=== PATIENT | male | born 1940 | race Caucasian/White ===

== ENCOUNTER 2018-02-14 12:03 | Emergency (ER) | payer MEDICARE, BC ==
[~2018-02-14 12:03] MED LIST: Sodium Chloride 0.9% 1,000 ML BAG ONE; Sodium Chloride 0.9% 100 ML BAG ONE
[2018-02-14 13:14] LABS: Band 29 % (5-11); Hemoglobin 14.2 g/dL (14.0-18.0); Lymphocytes 8 % (21-51); MDiff Complete? YES; Mean Corpuscular Volume 89.8 fl (80.0-94.0); Mean Platelet Volume 9.7 fL (7.4-10.4); Monocytes 2 % (0-10); Neutrophil 61 % (42-75); Platelet Count 211 thou/uL (130-400); RBC Distribution Width 14.1 % (11.5-14.5); Red Blood Cell (RBC) Count 5.28 mill/uL (4.70-6.10); Vacuoles SLIGHT; White Blood Cell (WBC) Count 14.4 thou/uL (4.8-10.8)
[2018-02-14 13:16] LABS: INR-International Normal Ratio 1.3; PTT 28.6 SEC (22.9-36.1); Prothrombin Time 16.8 SEC (12.0-14.7)
--- NOTE | 2018-02-14 13:17 | CT ---
HEAD CT WITHOUT CONTRAST: Date: 02-14-18 Comparison: 01-03-16 History: Fall over the past two days, inability to communicate, altered mental status. Technique: Serial axial CT imaging is obtained at 5 mm intervals from vertex through the skull base w ithout contrast. Coronal and sagittal reformatted imaging obtained. FINDINGS: Incompletely imaged ventriculoperitoneal shunt tubing is seen inserted via a right parietal approach, distal tip of catheter tubing abutting the septum pellucidum, stable. Imaged paranasal sinuses and mastoid air cells are grossly unremarkable. There is no displaced calvarial fracture. No intracranial hemorrhage, midline shift, or mass effect n oted. There is moderate diffuse cerebral volume loss with associated prominence of the CSF containing space s. There is extensive periventricular deep and subcortical white matter hypodensity, evidence of prom inent stable small vessel disease. IMPRESSION: Chronic findings as detailed above. No intracranial hemorrhage or displaced calvarial fracture. POS: FINN
--- NOTE | 2018-02-14 13:22 | CT ---
CERVICAL SPINE CT WITHOUT CONTRAST: Date: 02-14-18 Comparison: 03-26-13 History: Fall two days ago. Injury with pain. Technique: Serial axial CT imaging obtained at 2.5 mm intervals from skull base through lung apices w ithout contrast. Coronal and sagittal reformatted imaging obtained. FINDINGS: There is prominent degenerative change at the atlantoaxial interspace. Review of the imaged lung apices demonstrates nonspecific focal airspace disease within the left uppe r lobe, incompletely imaged on this exam. There is a suggestion of reticular nodular density within t he right lung apex as well. The C1 ring is intact. There is no prevertebral soft tissue swelling. There is mild anterolisthesis at C3-4, C4-5, and C5-6. There is multilevel upper cervical spine facet hypertrophic change, left greater than right, most pro minent at the C3-4 level. No displaced fracture or evidence of dislocation is apparent. There is scattered atherosclerotic calcification involving the distal CCA and proximal ICA bilaterall y. IMPRESSION: 1. Multilevel cervical spine degenerative change with no acute fracture or dislocation seen. 2. Incompletely imaged reticular nodular density in right upper lobe and incompletely imaged focal ai rspace disease in left upper lobe. Findings may be inflammatory/infectious or neoplastic in nature. D edicated CT examination of the chest is advised. Code T POS: ZORA
[2018-02-14 13:24] LABS: ALT (SGPT) 62 U/L (8-55); AST (SGOT) 289 U/L (5-34); Albumin 3.3 g/dL (3.4-4.8); Alkaline Phosphatase 79 U/L (40-150); Anion Gap 22 mmol/L (10-20); BUN (Urea Nitrogen) 69 mg/dL (8.4-25.7); Bilirubin, Total 0.8 mg/dL (0.2-1.2); Calc. Creatinine Clearance 0 mL/min (70-130); Calcium 9.8 mg/dL (7.8-10.44); Carbon Dioxide 26 mmol/L (23-31); Chloride 103 mmol/L (98-107); Estimated GFR-MDRD 12; Globulin 4.3 g/dL (2.4-3.5); Glucose 134 mg/dL (83-110); Potassium 4.2 mmol/L (3.5-5.1); Protein, Total 7.6 g/dL (5.8-8.1); Sodium 147 mmol/L (136-145)
[2018-02-14] MEDS ORDERED: Piperacillin/Tazobactam 3.375 GM VIAL ONE (13:33)
[2018-02-14] MEDS ORDERED: Azithromycin 500 MG VIAL ONE (14:04)
--- NOTE | 2018-02-14 14:50 | CT ---
CT OF CHEST AND ABDOMEN AND PELVIS AND THORACIC SPINE AND LUMBAR SPINE: Date: 02/14/18 COMPARISON: None. HISTORY: Fall, left upper abdominal puncture wound. TECHNIQUE: Serial axial CT imaging is obtained at 5 mm intervals from the thoracic inlet through the pubic symph ysis with IV contrast. Coronal reformatted imaging of the chest and abdomen and pelvis provided. Yvan nal and sagittal reformatted imaging of the thoracic spine and lumbar spine provided. FINDINGS: No axillary lymphadenopathy noted. There are enlarged mediastinal nodes, which includes a prevascular node measuring 1.1 cm, a superior left hilar node measuring 1.3 cm, and additional left perihilar node measuring 1.1 cm. No right hilar lymphadenopathy is seen. There is no pneumothorax. The lung parenchyma is markedly abnormal bilaterally. There is a large cavitary lesion with extensive surrounding consolidative change and alveolar opacity, including anterior air bronchogram formation centered within the mid portion of the left upper lobe. This area of abnormal measures at least 6.8 x 9.0 cm. This is inseparable from a large centrally hypodense soft tissue mass lesion in the left hi lar region which measures at least 7.3 x 7.9 cm. This lesion demonstrates additional cavitation and s uggests a necrotic lesion. There are numerous additional areas of scattered reticulonodular density w ithin the left upper lobe, particularly in the lingula, on image 41. There is extensive multifocal re ticulonodular density in the left lower lobe with focal areas of peripheral consolidation within the inferior left lower lobe. There is also posterolateral peripheral extensive reticulonodular density w ithin the posterior right upper lobe and the posterior right lower lobe. There is atherosclerotic calcification of the aortic arch. CT of the abdomen and pelvis demonstrates no free intraperitoneal air or fluid. There are postoperati ve clips present within the pelvis. The patient appears status post surgical resection of the prostat e gland and the urinary bladder with a probable ileostomy in the right lower quadrant. No evidence for bowel inflammatory change or bowel obstruction. Appendix appears grossly unremarkable . There is extensive atherosclerotic calcification of the abdominal aorta and its branches. There is an IVC filter in place. There is a small hiatal hernia. There is no lymphadenopathy in the abdomen/pelvis. There is a fat-containing inguinal hernia on the left. Extraspinal osseous structures of the chest demonstrate no acute osseous abnormality. Extraspinal osseous structures of the abdomen/pelvis demonstrate no acute findings. There are a few n onspecific sclerotic foci within the posterior aspect of the acetabulum on the left, measuring up to 8.0 mm on axial image 112. These sclerotic foci appear similar when compared to prior pelvic CT perfo rmed 02/03/10. CT of thoracic and lumbar spine demonstrate no evidence for anterolisthesis or retrolisthesis. There is age-indeterminate mild superior end plate fracture present at T10 and T11. Superior end plate fractures are noted at the L3 and L4 level, which appear similar when compared to a lumbar spine MRI performed 02/06/10. IMPRESSION: 1. There is extensive abnormal pulmonary parenchymal density throughout the majority of the left upp er lobe with areas of multifocal cavitation and mass-like opacity with apparent obstruction of the le ft upper lobe bronchus. 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 Extensive additional scattered areas of reticulonodular density are noted throughout both lungs, which may be related to multifocal infectious pneumonitis or lymphangitic spread of tumor . 2. Age-indeterminate thoracic spine fractures. 3. Old lumbar spine fractures. 4. Postoperative changes within the pelvis. Results discussed with Dr. Rivera at 1315 hours on 02/14/18. CODE CR. POS: ZORA
== END 2018-02-14 14:44 | disposition short-term general hospital (02) ==
LOC: MADERS 12:03
DX: S31.131A Puncture wound of abdominal wall without foreign body, left upper quadrant without penetration into peritoneal cavity, initial encounter (principal); N17.9 Acute kidney failure, unspecified; J18.9 Pneumonia, unspecified organism; R09.02 Hypoxemia; E78.5 Hyperlipidemia, unspecified; F17.210 Nicotine dependence, cigarettes, uncomplicated; Z79.82 Long term (current) use of aspirin; Z79.899 Other long term (current) drug therapy; W06.XXXA Fall from bed, initial encounter
CPT/HCPCS: 36415; 70450; 71260; 72125; 74177; 80053; 80185; 84443; 85025; 85610; 85730; 93005; 94760; 96361; 96365; 96375; J0456; J2543; J7050